=== PATIENT | male | born 1985 | race Caucasian/White ===

== ENCOUNTER 2024-02-20 16:31 | Emergency (ER) | payer MEDICAID, SELFPAY ==
[2024-02-20 16:32] VITALS: BP 122/80; PULSE 95; RESP 16; TEMP 36.9; O2SAT 100; BMI 19.2
--- NOTE | 2024-02-20 16:45 | RAD_ITS ---
EXAM: XR RIGHT WRIST COMPLETE, 3 OR MORE VIEWS CLINICAL INDICATION: WRIST PAIN TECHNIQUE: Frontal, lateral and oblique views of the right wrist. COMPARISON: No relevant prior studies available. FINDINGS: BONES/JOINTS: No significant abnormality. No acute fracture. No subluxation. Normal alignment. Preservation of the joint space. No sclerotic or destructive changes observed. SOFT TISSUES: No significant abnormality. No soft tissue swelling or gas. No radiopaque foreign body. RAD/Wrist min 3 Views IMPRESSION: Negative right wrist x-rays. Electronically Signed: Aren Wall DO at 17:21 EST ,
--- NOTE | 2024-02-20 19:38 | EDS_ITS ---
HPI History of Present Illness Chief Complaint: Upper Extremity Injury Informant: patient Narrative Narrative: [id number] male woke up 1 week ago with pain in his right wrist near his distal radius. He states it tends to hurt with certain movements and when it does hurt it is severe. Seems to be more with elbow movements than wrist movements. He denies any numbness and tingling in his fingers, he states he feels like there is a little bit of numbness right at the area where the pain is. No weakness. No direct injury. 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 States he was off this past week and resting it and trying to hold it in positions of comfort, wearing a wrist splint and taking anti- inflammatories but none of it has seemed to help. No fevers, chills, systemic symptoms. PFSH PFSH Medical History no medical history no medical history Home Medications ?Medication ?Instructions ?Recorded ?Last Taken ?Type NK 02/20/24 Unknown History Allergy/AdvReac Type Severity Reaction Status Date / Time No Known Allergies Allergy Verified 02/20/24 16:32 Social History Smoking Status: Current every day smoker tobacco type: cigarettes ROS ROS ED Constitutional Constitutional ED: Denies chills or fever(s) Musculoskeletal Musculoskeletal: Reports extremity pain; Denies neck pain Integumentary Denies Abrasions, rash or wounds Neurologic Neurologic: Denies paresthesias or weakness EXAM Physical Exam Const Vital Signs: 02/20/24 16:32 Temperature 98.4 F Temperature Source Oral Pulse Rate 95 Respiratory Rate 16 Blood Pressure 122/80 H Blood Pressure Mean 94 Pulse Ox 100 Oxygen Delivery Method Room Air Positive well nourished and well developed General Appearance ED: well developed and NAD Neck full ROM and supple Back/Spine normal ROM and normal to inspection Extremity normal to inspection and full ROM Extremity Narrative: Patient has full range of motion of the right shoulder, elbow, wrist, all fingers. All FDS and FDP tendons and extensors all intact. Negative Tinel's at the ulnar and median tunnels. I am not able to reproduce his pain with simple palpation or flexion/extension of the wrist, his Albina is negative, and with forced ulnar deviation of the wrist he still has no pain. However if he simply bends his elbow in flexion the wrong way he gets a sudden pain in the wrist that radiates up to the elbow along the volar forearm. All compartments soft and nondistended and nontender when the patient is not moving. No bony tenderness at the elbow. Neuro oriented x3, no focal motor deficits and no sensory deficits noted Sensorium / Orientation: alert Psych mental status grossly normal and thought process normal Skin no wounds Rashes: no rashes MDM MDM MDM Narrative Medical decision making narrative: Three-view x-ray series of the wrist including the area where the patient has pain is normal on my interpretation, radiology in agreement. My suspicion is that this patient has some type of tendinitis involving some of the forearm flexors, but I unable to pinpoint the structure since he is making his wrist hurt with elbow flexion. I am giving him a sling and he agrees that holding his arm in the position of comfort that sling would do does feel better, and I am referring him to on-call upper extremity orthopedics. Radiography Diagnostic Testing: Clinical Impression(s) from Imaging Studies Wrist X-Ray 02/20/24 16:45 IMPRESSION: Negative right wrist x-rays. Electronically Signed: Aren Wall DO at 17:21 EST , Discharge Plan Triage Chief Complaint: Upper Extremity Injury ED Provider: Tino Guadalupe Dx/Rx/DC Orders Clinical Impression: Tendinitis of right forearm Instructions: ED Sling, ED Tendonitis Prescriptions: No Action NK Primary Care Provider: Care Physician,No Primary Referrals: Santos Jc MD [Med Staff - Active Staff] - Print Language: [place] Disposition Disposition: Home, Self Care
== END 2024-02-20 19:52 | disposition home or self-care (01) ==
PROVIDERS: Emergency Provider Emergency Medicine; Visit Provider Emergency Medicine
DX: M77.9 Enthesopathy, unspecified (principal); F17.210 Nicotine dependence, cigarettes, uncomplicated
CPT/HCPCS: 73110; 99282